=== PATIENT | female | born 1945 | race Caucasian/White ===

== ENCOUNTER → 2017-03-18 | Outpatient (CLI) | payer OTHER, MEDICARE | LOC: CIMAGING 09:46 | PROVIDERS: ATTEND Obstetrics & Gynecology | DX: Z12.31 Encounter for screening mammogram for malignant neoplasm of breast (principal); Z80.3 Family history of malignant neoplasm of breast | CPT/HCPCS: G0202 ==

== ENCOUNTER → 2018-03-19 | Outpatient (CLI) | payer OTHER, MEDICARE | LOC: CIMAGING 10:23 | PROVIDERS: ATTEND Obstetrics & Gynecology | DX: Z12.31 Encounter for screening mammogram for malignant neoplasm of breast (principal); Z80.3 Family history of malignant neoplasm of breast ==

== ENCOUNTER 2018-09-02 11:05 | Observation (INO) | payer OTHER, MEDICARE ==
[2018-09-02] MEDS ORDERED: NS 1,000 ML IV ONE (11:10)
[2018-09-02 11:47] LABS: PLATELET COUNT 228 10^3/uL (150-400)
[2018-09-02] MEDS ORDERED: LIDOCAINE 1% 300 MG/30 ML SDV ONE (12:10)
[2018-09-02] MEDS ORDERED: HEPARIN 10,000 UNIT/10 ML MDV (1,000 UNIT/ML) ONE (12:10)
[2018-09-02] MEDS ORDERED: HEPARIN/DEXTROSE 25,000 UNIT/500 ML BAG ONE (12:10)
[2018-09-02] MEDS ORDERED: BUPIVACAINE 0.75% 10 ML SDV ONE (12:11)
[2018-09-02] MEDS ORDERED: ISOPROTERENOL HCL/D5W 0.2 MG/50 ML BAG IV ONE (12:11)
[2018-09-02 12:12] LABS: INR 1.02 (0.83-1.16)
[2018-09-02] MEDS ORDERED: MIDAZOLAM 2 MG/2 ML VIAL ONE (12:34)
[2018-09-02] MEDS ORDERED: PROPOFOL 200 MG/20 ML VIAL ONE (12:44)
[2018-09-02] MEDS ORDERED: PROPOFOL/EMULSION 500 MG/50 ML BOTTLE IV ONE (12:45)
[2018-09-02] MEDS ORDERED: fentaNYL 100 MCG/2 ML INJ ONE (12:49)
[2018-09-02] MEDS ORDERED: ADENOSINE 6 MG/2 ML VIAL ONE (14:10)
[2018-09-02] MEDS ORDERED: SUGAMMADEX SODIUM 200 MG/2 ML VIAL IVP ONE (14:14)
--- NOTE | 2018-09-02 15:53 | EPPROC ---
Electrophysiology Procedure Note: Date: 09/02/2018 Pig Sticker: Diomedes Stuart MD Procedures: Comprehensive EP study, catheter ablation of SVT - 41311 CS catheter placement/pacing - 59207 3D electroanatomic mapping - 43401 Attempted induction of arrhythmia after drug infusion - 54994 TERRENCE - 87134 Indications: 72yo F with history of CTI ablation for typical atrial flutter, now with persistent atrial flutter (typical in appearance). Techniques: Following informed consent, the patient was brought to the EP lab in a fasting nonsedated state, in AFL rhythm (typical appearing AFL, TCL 290- 300ms). General anesthesia was provided by the anesthesiology service. Pre- procedure TERRENCE demonstrated the absence of NAGA thrombus (see formal report for full details). Bilateral groins were prepped and draped in usual sterile fashion. 1% lidocaine was infiltrated over the right femoral vessels, and under US gudiance vascular access was obtained in the RFV x3 (5Fr, 7Fr, SL-0 sheaths) . A decapolar catheter was advanced to the CS under CARTO guidance. A M9 Defense SF ablation catheter was used to create a CARTO map of the RA and proximal CS; the His position was annotated. Baseline rhythm was AFL with TCL 290-300ms, CSp>d activation, typical appearance in the surface leads. HV 42ms Entrainment from the lateral CTI showed concealed fusion, and PPI-OOM=[id number]= 12ms, confirming CTI-dependent atrial flutter. CARTO LAT map was created of the RA, revealing "reverse typical" clockwise flutter. The area of breakthrough appeared to be at the posterior CTI, at the IVC junction. RF ablation was performed in this location at 35W power, which led to termination of the atrial flutter. Pacing was initiated from CSp, and this demonstrated that the CTI was not yet blocked; the posterior CTI was again the area of interest. Additional ablation was performed in this location, but catheter contact was limited using the standard approach from the IVC. The ablation catheter was retroflexed, and was able to be tucked into the posterior CTI; a prominent Eustachian ridge was suspected. With RFA in this location, CTI block was achieved. RGU=515rs. Due to difficulty obtaining transisthmus block, adenosine 6mg IV x1 was administered during CSp pacing; there was no change in the transisthmus time, suggesting persistent block. At the completion of the procedure, all catheters were removed. A temporary hemostasis suture was applied to the right groin access site, and sheaths aspirated then removed; manual pressure was held until hemostasis. The patient tolerated the procedure well. EBL: minimal Complications: none Assessment: Recurrent CTI-dependent atrial flutter, sp successful reablation of the CTI Prominent Eustachian ridge Plan: Bedrest 6 hours Resume eliquis at completion of bedrest, continue for at least 1 month Right groin precautions 10 days Patient Problems: Problems Problem Status Onset Atrial flutter Acute
--- NOTE | 2018-09-02 16:20 | ECHO ---
[email or web address] [id number] Main: [phone] Echocardiography Examination Transesophageal Name: SARTHAK DUNN MR#: [id number] Study Date: 09/02/2018 Study Time: 12:58 PM Date of : 1945 Age: 72 year(s) Height: ( ) Weight: ( ) BSA: Gender: Female Examination: TERRENCE Contrast: Image Quality: Rhythm: Atrial fibrillation Heart Rate: BP: / Indication: Pre EP Procedure Staff Referring Physician: [place] Supervisor: José Miguel Valerio CHRIS Reading Physician: Oliver Stuart MD Requesting Provider: Ordering Physician: Oliver Stuart MD Indication: Pre EP Conclusions Overall Conclusions: No NAGA appendage. No intracardiac shunting on bubble study. Moderately reduced LV systolic function suspected secondary to AFL with RVR. Moderate plaque in the descending thoracic aorta. Findings Left Ventricle: Moderately reduced systolic left ventricular function. The EF is visually estimated to be 40 %. Left Atrium Appendage: Good color flow doppler in the left atrial appendage. No thrombus is identified. IAS: An agitated saline study was performed and was negative for intracardiac shunting. Mitral Valve: Mitral valve appears structurally normal. Mild mitral regurgitation. Aortic Valve: Aortic leaflets are structurally normal. No significant aortic valve regurgitation. Aorta: Moderately severe atheroma in the descending aorta. Patient: SARTHAK DUNN Study Date: 09/02/2018 Page 1 of 2 12:58 PM Exam Details Procedure Ordered: TERRENCE (No Signature Object) Patient: SARTHAK DUNN Study Date: 09/02/2018 Page 2 of 2 12:58 PM [id number]
[2018-09-02] MEDS ORDERED: METOPROLOL SUCCINATE XR 50 MG TAB PO SCH (18:00)
[2018-09-02] MEDS ORDERED: ATORVASTATIN CALCIUM 10 MG TAB PO SCH (18:00)
[2018-09-02] MEDS: APIXABAN 5 MG TAB PO SCH (21:34)
[2018-09-03 05:13] LABS: CREATINE KINASE 39 IU/L (0-156)
[2018-09-03] MEDS ORDERED: CHOLECALCIFEROL VIT D3 1,000 UNITS TAB PO SCH (06:00)
[2018-09-03] MEDS ORDERED: DILTIAZEM CD 120 MG CAP PO SCH (06:00)
[2018-09-03] MEDS: APIXABAN 5 MG TAB PO SCH (06:19)
[2018-09-03] MEDS ORDERED: LISINOPRIL/HCTZ 10/12.5 MG 1 EA TAB PO SCH (09:00)
[2018-09-03] MEDS ORDERED: PANTOPRAZOLE SODIUM 40 MG TAB PO SCH (09:00)
[2018-09-03 09:31] VITALS: BP 155/88
--- NOTE | 2018-09-03 10:19 | ASDISCHSUM ---
Discharge Information Plan Status:Home with No Needs Medically Cleared to Leave:09/03/2018 Discharge Date:09/03/2018 CM D/C Disposition:Home, Routine, Self-Care ADT D/C Disposition:Home, Routine, Self-Care Projected Discharge Date:09/03/2018 Transportation at D/C: Discharge Delay Reason: Follow-Up Date:09/03/2018 Discharge Slot: Final Diagnosis: Placement Information Patient Contact Information Contact Name:BENJA Relationship: Address:[address] City:[place] Phone: [facility]/Zip Code:[place] [address] Email: Financial Information Financial Class:Medicare Primary Plan Desc:MEDICARE OUTPATIENT Primary Plan Number:[id number] Secondary Plan Desc:YUMI/NANY SUPPLEMENT Secondary Plan Number:[id number] Assessment Information LACE LACE Length of stay for Answers: Less than 1 day current admission Acuity / Level of Answers: No Care: Did the patient have an inpatient admission? Comorbidities - select Answers: Other Notes: N/A all that apply # of Emergency department Answers: 0 visits in the last 6 months Score: 1 Date Signed: 09/03/2018 10:18 AM Electronically Signed By:Parisa Landry RN Intervention Information
--- NOTE | 2018-09-03 16:29 | GDS ---
[f rep st] DISCHARGE SUMMARY SUPERVISING CELL LINER: Oliver Staurt MD ADMISSION DIAGNOSIS: Atrial flutter. DISCHARGE DIAGNOSIS: Atrial flutter, status post successful re-ablation. PROCEDURES PERFORMED DURING HOSPITALIZATION: 1. Electrocardiogram. 2. Electrophysiology procedure. 3. Echocardiogram. 4. Atrial flutter ablation. HOSPITAL COURSE: The patient presented 09/03/2018, for an atrial flutter ablation in the setting of increasingly frequent and symptomatic episodes of atrial flutter following a past atrial flutter ablation. The patient underwent successful atrial flutter ablation with Dr. Oliver Stuart without any intraprocedural complications. She has done very well in the postprocedure setting and she is appropriate and stable for discharge home today. CURRENT PHYSICAL EXAMINATION: GENERAL: Alert and oriented x4. No apparent distress. VITAL SIGNS: Blood pressure 155/88, heart rate 85, respiratory rate 16, SpO2 96% on room air, temp 36.5 degrees Celsius. RESPIRATORY: Lungs are clear to auscultation without adventitious breath sounds. CARDIAC: Normal S1, S2. No S3 or S4. Rhythm is regular. ABDOMEN: Normoactive bowel sounds times all 4 quadrants. No masses or tenderness. Soft to palpation. SKIN: [place], warm, dry without cyanosis, clubbing, or peripheral edema. EXTREMITIES: Right groin suture removed intact without even evidence of hematoma, redness, oozing, swelling, or warmth. Pzoj-if-ptkopvjl ecchymosis at this site. Pulses are 2+ bilaterally. No edema. LABORATORY STUDIES: Drawn today, demonstrate stable BMP compared to preprocedure. Troponin is 0.056, please note the elevated troponin is to be expected in the postprocedure setting. PROCEDURES: Electrophysiology study and atrial flutter ablation, as mentioned above. Electrocardiogram this morning demonstrates normal sinus rhythm without new ST or T-wave or P-R interval abnormalities. DISCHARGE DISPOSITION: The patient will be discharged home in stable condition. She is under activity restrictions, as below. DISCHARGE MEDICATIONS: Please see discharge medication reconciliation sheet for full details. Please note, the patient's diltiazem has been discontinued and she has been started on lisinopril/hydrochlorothiazide for management of hypertension. She will hold her estradiol for 4 weeks post procedure and she will continue her Eliquis uninterrupted at this time. DISCHARGE INSTRUCTIONS: Post atrial flutter ablation instructions reviewed with the patient and her in detail. 1. We discussed activity restrictions including lifting no more than 10 pounds and avoidance of submerged bathing for 10 days. 2. She will get up and walk around every 45 minutes for 45 days while awake. 3. We reviewed bleeding precautions, medication compliance, monitoring for signs and symptoms of infection, and monitoring for sustained arrhythmia. At the time of discharge, the patient and verbalized understanding regarding all discharge instructions without questions or concerns. She will seek out an opportunity to calibrate her blood pressure cuff for ongoing monitoring of her hypertension. She will follow up with Dr. Stuart in 2 weeks and she will contact [facility] if she experiences in any new or concerning symptoms prior to upcoming followup visit. Time spent on discharge greater than 30 minutes. ADDENDUM Diomedes Stuart MD - uneventful postop observation, status post ablation of typical atrial flutter. Treating hypertension with the addition of lisinopril and hydrochlorothiazide. Postop care and discharge instructions as above. /[id number]/MODL MTDD
--- NOTE | 2018-09-03 19:35 | CPEKG ---
Test Reason : OPEN Blood Pressure : / mmHG Vent. Rate : 108 BPM Atrial Rate : 109 BPM P-R Int : 171 ms QRS Dur : 096 ms QT Int : 371 ms P-R-T Axes : -89 045 -09 degrees QTc Int : 498 ms ATRIAL FLUTTER Non specific inferolateral st-t changes. Confirmed by Sanju Capone ([id number]) on 09/03/2018 7:34:41 PM Referred By: Oliver Stuart Confirmed By:Sanju Capone
--- NOTE | 2018-09-03 19:37 | CPEKG ---
Test Reason : OPEN Blood Pressure : / mmHG Vent. Rate : 084 BPM Atrial Rate : 084 BPM P-R Int : 239 ms QRS Dur : 105 ms QT Int : 401 ms P-R-T Axes : 068 030 014 degrees QTc Int : 475 ms Sinus rhythm 1 degree av block t Abnormal inferior Q waves Confirmed by Sanju Capone ([id number]) on 09/03/2018 7:36:53 PM Referred By: Oliver Stuart Confirmed By:Sanju Capone
--- NOTE | 2018-09-03 19:41 | CPEKG ---
Test Reason : OPEN Blood Pressure : / mmHG Vent. Rate : 083 BPM Atrial Rate : 083 BPM P-R Int : 240 ms QRS Dur : 106 ms QT Int : 419 ms P-R-T Axes : 069 033 009 degrees QTc Int : 493 ms Sinus rhythm Sinus pause ectopic atrial rhythm. Confirmed by Sanju Capone ([id number]) on 09/03/2018 7:40:57 PM Referred By: Oliver Stuart Confirmed By:Sanju Capone
--- NOTE | 2018-09-04 18:18 | POSTANESTH ---
Post Anesthetic Evaluation Cardiovascular Status: Similar to Pre-Op Cond Respiratory Status: Similar to Pre-op Cond. Level of Consciousness/Mental Status: Alert and Oriented Pain Control: Adequate, Prn Tx Ordered Nausea/Vomiting Control: Adequate, Prn Tx Ordered Complications Possibly Related to Anesthesia: None Noted
[2018-09-05] MEDS ORDERED: ESTRADIOL VIVELLE 0.05 MG PATCH TD SCH (06:00)
== END 2018-09-03 11:20 | disposition home or self-care (01) ==
LOC: FCATH 11:05 → F2W 14:31 → F2N 15:19 → F2W 15:37
PROVIDERS: ADMIT Internal Medicine Cardiovascular Disease; ATTEND Internal Medicine Cardiovascular Disease
DX: I48.92 Unspecified atrial flutter (principal); I25.10 Atherosclerotic heart disease of native coronary artery without angina pectoris; E78.5 Hyperlipidemia, unspecified; I10 Essential (primary) hypertension; I42.9 Cardiomyopathy, unspecified; Z79.01 Long term (current) use of anticoagulants; Z87.891 Personal history of nicotine dependence; Z82.49 Family history of ischemic heart disease and other diseases of the circulatory system; Z95.5 Presence of coronary angioplasty implant and graft
CPT/HCPCS: 93005; 93312; 93613; 93621; 93623; 93653; C1732; C1893; J0153; J1644; J2250; J2704; J3010

== ENCOUNTER → 2018-10-15 | Outpatient (CLI) | payer OTHER, MEDICARE | LOC: BHLMT 11:00 | PROVIDERS: ATTEND Internal Medicine Cardiovascular Disease | DX: I48.3 Typical atrial flutter (principal); I10 Essential (primary) hypertension | CPT/HCPCS: 93225-PO; 93226-PO ==